=== PATIENT | male | born 1980 | race Caucasian/White ===

== ENCOUNTER → 2024-03-29 09:59 | Outpatient (REF) | payer OTHER, SELFPAY | LOC: RAD 09:59 | PROVIDERS: ATTENDING PHYSICIAN Physician Assistant; FAMILY PHYSICIAN Internal Medicine Gastroenterology | DX: K51.90 Ulcerative colitis, unspecified, without complications (principal); M45.9 Ankylosing spondylitis of unspecified sites in spine; M54.50 Low back pain, unspecified | CPT/HCPCS: 72114; 72202 ==

== ENCOUNTER 2024-10-06 12:36 | Emergency (ER) | payer BC, SELFPAY ==
[2024-10-06 12:38] VITALS: BP 180/119
[2024-10-06 13:32] VITALS: BMI 39.6
[2024-10-06 13:34] LABS: Urine Albumin Negative (Neg - Trace); Urine Bilirubin Negative (Negative); Urine Character Clear (Clear); Urine Color Yellow; Urine Glucose Negative (Negative); Urine Ketone Negative (Negative); Urine Leukocyte 1+ (Negative); Urine Nitrite Negative (Negative); Urine Occult Blood Negative (Negative); Urine Urobilinogen Negative (Neg - 1+)
[2024-10-06] MEDS: NSS 500 IV (13:40)
[2024-10-06 13:43] VITALS: BP 154/98
[2024-10-06 13:53] LABS: % Basophils 0.9 % (0-2); % Eosinophils 3.8 % (0-6); % Immature Granulocytes 0.1 % (0-0.5); % Lymphocytes 20.2 % (20.5-51.1); % Monocytes 6.4 % (1.7-9.3); % Neutrophils 68.6 % (42.2-75.2); Absolute Basophils 0.1 10^3/uL (0-0.2); Absolute Eosinophils 0.4 10^3/uL (0-0.7); Absolute Monocytes 0.6 10^3/uL (0.1-0.6); Absolute Neutrophils 6.6 10^3/uL (1.4-6.5); Hematocrit 43.8 % (39.0-52.0); Hemoglobin 14.6 g/dL (13.0-18.0); Mean Corp Hgb Conc. 33.3 g/dL (33.0-37.0); Mean Corpuscular Hgb 27.5 pg (27.0-31.0); Mean Corpuscular Volume 82.6 fL (80.0-94.0); Mean Platelet Volume 9.5 fL (7.4-10.4); Nucleated Red Blood Cells % 0 % (-); Platelet Count 346 10^3/uL (130-400); Red Cell Dist. Width 13.6 % (11.5-14.5); White Blood Cell Count 9.6 10^3/uL (4.8-10.8)
[2024-10-06 14:00] VITALS: BP 149/111
--- NOTE | 2024-10-06 14:05 | ED.GENMED ---
History of Present Illness
General
Chief Complaint: Abdominal Pain
Source: patient
Exam Limitations: none
Time Seen by Provider: 10/06/24 13:20
History of Present Illness
History of Present Illness:
44-year-old male some urinary frequency recently. No dysuria. No discharge. No flank or back pain. Bilateral lower midline pelvic discomfort vague in nature. No fever or chills. History of ulcerative colitis however does not feel like a UC
flare. No bloody or mucousy stools.
Past History
Past History
ED Past Medical History: GERD, HTN and Other (Crohn's disease.)
ED Past Surgical History: Other ([place] teeth/hernia)
Social History
Tobacco: Non-smoker
Personal:
Living: with family
Employment: Employed
Review of Systems
Review of Systems
All Other Systems: Not applicable
Constitutional: Denies fever or chills
Respiratory: Reports no symptoms
Phy Exam
Physical Exam
Physical Exam:
GENERAL: Alert and oriented in no apparent distress
EYE: Orbits normal.
NECK: Supple
CARDIAC: Regular rate and rhythm without any obvious murmurs.
LUNGS: Clear breath sounds,normal
ABDOMEN: Soft, no rebound or guarding no mass or hernia. No real localized tenderness. There is very minimal vague pubic tenderness. No CVA tenderness
NEUROLOGICAL: Alert and oriented , grossly non-focal
SKIN: Warm and dry, no rash or lesion, no discoloration, skin intact.
MUSCULOSKELETAL: No edema,no deformity.Good color
PSYCH: Normal and appropriate interaction.
Course
Orders/Labs/Results
Orders:
Orders
10/06/24 13:25
Urinalysis Reflex To Culture Urgent
Date Specimen was Collected: 10/06/24
Time Specimen was Collected: 13:24
Urine Microscopic Reflex Cult Urgent
Urine Culture Urgent
LUIZ Source: U
Specimen Description:
Date Specimen was Collected: 10/06/24
Time Specimen was Collected: 13:24
10/06/24 13:32
IV Insert/Care/Rem.- Treatment PRN
0.9% Sodium Chloride 500 ml [Nss] 500 ml IV BOLUS
10/06/24 13:35
Complete Blood Count/With Diff Urgent
Comprehensive Metabolic Panel Urgent
Lipase Urgent
10/06/24 14:04
CT Abd/Pel (IV only)-DH only Urgent
Comment:
Reason For Exam: Lower pelvic pain
10/06/24 17:11
Cefdinir [Omnicef] 300 mg PO NOW STA
Abnormal Lab Results
10/06/24 10/06/24
13:25 13:35
Absolute Neuts (auto) 6.6 H 10^3/uL
(1.4-6.5)
Lymphocytes % 20.2 L %
(20.5-51.1)
Glucose 117 H mg/dl
(70-99)
Leukocyte Esterase Rfl 1+ A
(Negative)
10/06/24 13:35
10/06/24 13:35
Vital Signs
Initial and Last Documented VS:
Initial Vital Signs
Temp Pulse Resp BP Pulse Ox
98.5 F 104 18 180/119 98
10/06/24 12:38 10/06/24 12:38 10/06/24 12:38 10/06/24 12:38 10/06/24 12:38
Last Documented Vital Signs
Temp Pulse Resp BP Pulse Ox
98.5 F 104 18 162/99 98
10/06/24 12:38 10/06/24 12:38 10/06/24 12:38 10/06/24 16:45 10/06/24 12:38
MDM/Problems Addressed
Differential Diagnosis Includes:
Differential including kidney stone, diverticulitis, prostatitis, UC flare workup in progress
*Pulse Oximetry
Patient hypoxic: no
*Critical Care Note
Total Time (30-74mins, 75-104mins- exclusive of procedures): Not Applicable
Data Reviewed
Review of Other/Old Records Reveals: Labs, Records and Testing
Update Note
Update Note:
Patient medically stable nontoxic. Possible bladder wall thickening although may just be under distention. +1 leukocyte in the bladder. Has been on amoxicillin recently. Possible partially treated UTI or prostatitis. Will cover with antibiotics
to follow-up. Clinically nontoxic. Nonsurgical abdomen. Patient given copy of CT report for follow-up
ED Attending Note
-
Portions of this chart may have been created with voice recognition software.� Occasional wrong word or��sound alike� substitutions may have occurred due to the inherent limitations of voice recognition software.
Discharge Plan
Departure
Patient Disposition: Home (Routine Discharge)
Date of Disposition: 10/06/24
Time of Disposition: 17:12
Patient with high blood pressure during this ER visit?: Yes
Discharge Problem:
Urinary frequency/pelvic pain, Possible prostatitis
Instructions: Pelvic Pain ED, BLOOD PRESSURE
Prescriptions:
New
cefdinir 300 mg capsule
300 mg PO BID 10 Days Qty: 20 0RF
No Action
multivitamin [Ife-Cfrbow-Yryyq] 1 EACH tablet
1 ea PO DAILY
L.acidoph,paracasei,B.animalis 1 EACH capsule
1 ea PO DAILY
Nebivolol Hcl [Bystolic]
5 mg PO DAILY 0RF
dextroamphetamine-amphetamine [Adderall] 20 MG tablet
20 mg PO DAILY Qty: 30 0RF
mesalamine [Lialda] 1.2 GM tablet,delayed release (DR/EC)
2.4 g PO BID
budesonide [Uceris] 9 MG tablet,delayed and ext.release
9 mg PO DAILY PRN (Reason: colitis)
bupropion HCl [Wellbutrin] 100 mg Tablet
100 mg PO DAILY
escitalopram oxalate [Lexapro] 5 mg Tablet
5 mg PO DAILY
modafinil 200 mg Tablet
200 mg PO DAILY
Referrals:
Dg Vega MD [Active] - Follow up in 5-7 days
Koby Mckeon MD [Family Provider] - Follow up in 2-3 days
Activity Restrictions/Additional Instructions:
Your prescription was sent to your pharmacy
Follow-up with your primary physician and recommend following up with urology for completeness
Interventions
Interventions:
*Risk Screen - Suicide Last Done: 10/06/24 12:38
*General Assessment Last Done: 10/06/24 13:32
*Neglect/Abuse Screening Last Done: 10/06/24 13:33
ED- Fall Risk Assessment Last Done: 10/06/24 13:32
*ED COVID-19 Vaccine History Last Done: 10/06/24 12:38
JV-Hlihfl-Hbcmtrlnrk Assessment Last Done: 10/06/24 13:33
Discharge Date and Time
Print Language: QATARI
[2024-10-06 14:07] LABS: ALT (SGPT) 50 U/L (0-50); AST (SGOT) 27 U/L (17-59); Albumin 4.5 g/dl (3.5-5.0); Alkaline Phosphatase 82 U/L (38-126); Blood Urea Nitrogen 12 mg/dl (9-20); Calcium 10.1 mg/dl (8.4-10.2); Carbon Dioxide 29 mmol/L (22-30); Chloride 103 mmol/L (98-107); Estimated Creatinine Clearance > 125 ml/min; Glucose 117 mg/dl (70-99); Lipase 85 U/L (23-300); Potassium 4.5 mmol/L (3.5-5.1); Sodium 140 mmol/L (135-145); Total Bilirubin 0.9 mg/dl (0.2-1.3); Total Protein 7.2 g/dl (6.3-8.2); eGFR > 60.00
[2024-10-06 14:25] LABS: Urine Mucus Many
[2024-10-06 14:26] LABS: Urine Amorphous Seen; Urine Red Blood Cell 0-2 /HPF (0-2); Urine Squamous Cell 0-2 /LPF (Few)
[2024-10-06 15:22] VITALS: BP 156/93
[2024-10-06 16:45] VITALS: BP 162/99
[2024-10-06] MEDS: OMNICEF 300 MG PO (17:35)
[2024-10-06 17:44] VITALS: BP 160/99
== END 2024-10-06 17:54 | disposition home or self-care (01) ==
LOC: EMR 12:36
PROVIDERS: EMERGENCY PHYSICIAN Emergency Medicine; FAMILY PHYSICIAN Internal Medicine
DX: R35.0 Frequency of micturition (principal); R10.2 Pelvic and perineal pain; K21.9 Gastro-esophageal reflux disease without esophagitis; I10 Essential (primary) hypertension; Z87.19 Personal history of other diseases of the digestive system
CPT/HCPCS: 96360; 99284; 74177; 80053; 81003; 81015; 83690; 85025; 87086; Q9967

== ENCOUNTER 2025-04-10 06:19 | Day surgery (SDC) | payer BC, SELFPAY | END 2025-04-10 10:44 | disposition home or self-care (01) | LOC: GI 06:19 | PROVIDERS: ATTENDING PHYSICIAN Internal Medicine Gastroenterology | DX: Z12.11 Encounter for screening for malignant neoplasm of colon (principal); K57.30 Diverticulosis of large intestine without perforation or abscess without bleeding; K51.50 Left sided colitis without complications; K44.9 Diaphragmatic hernia without obstruction or gangrene; K31.7 Polyp of stomach and duodenum; K52.9 Noninfective gastroenteritis and colitis, unspecified; K63.5 Polyp of colon | CPT/HCPCS: 45385; 45380; 43239; 88305 ==